=== PATIENT | female | born 1960 | race African-American/Black ===

== ENCOUNTER 2020-01-26 18:26 | Emergency (ER) | payer OTHER, MEDICAID ==
[~2020-01-26] VITALS: Ht 167.6 cm; Wt 50.0 kg
[~2020-01-26 18:26] MED LIST: ALBU2SYR3 PO; AZIT1PAC10 PO
[2020-01-26] MEDS ORDERED: TETANUS, DIPHTHERIA, PERTUSSIS VAC/PF 0.5ML (>7YR OLD) IM ONE (19:15)
[2020-01-26 19:40] VITALS: BP 133/88
== END 2020-01-26 21:43 | disposition left against medical advice (07) ==
LOC: ER 18:26
DX: S01.81XA Laceration without foreign body of other part of head, initial encounter (principal); F10.129 Alcohol abuse with intoxication, unspecified; Y90.9 Presence of alcohol in blood, level not specified; J45.909 Unspecified asthma, uncomplicated; F31.9 Bipolar disorder, unspecified; Z86.73 Personal history of transient ischemic attack (TIA), and cerebral infarction without residual deficits; V43.52XA Car driver injured in collision with other type car in traffic accident, initial encounter; W22.11XA Striking against or struck by driver side automobile airbag, initial encounter; Y93.89 Activity, other specified; Y92.488 Other paved roadways as the place of occurrence of the external cause
CPT/HCPCS: 90471; 90715; 99283

== ENCOUNTER 2024-06-24 00:19 | Inpatient (IN) | payer OTHER, MEDICAID ==
[~2024-06-24] VITALS: Ht 162.6 cm; Wt 54.9 kg
[2024-06-24] VITALS (17 sets, daily range): BP systolic 120–160; BP diastolic 73–96; PULSE 60–79; RESP 17–38; TEMP 36.50292–36.72516; O2SAT 94–100
[2024-06-24] MEDS: METHYLPREDNISOLONE SOD SUCC 125MG/2ML (ACT-O-VIAL) IV STA (00:52)
[2024-06-24] MEDS: MAGNESIUM 2 G PREMIX 50 ML IV ONE (00:52)
[2024-06-24 01:34] LABS: BG BASE EXCESS -6.4 mmol/L (-2.0-3.0); BG CARBOXYHEMOGLOBIN 2.1 % (0.5-1.5); BG DEOXYHEMOGLOBIN 0.5 % (0.0-5.0); BG FRACTION INSPIRED OXYGEN 100; BG HCO3 ACT 22.3 mmol/L (21.0-28.0); BG METHEMOGLOBIN 0.2 % (0.5-1.5); BG OXYGEN SATURATION 99.5 % (94.0-98.0); BG OXYHEMOGLOBIN 97.2 % (94.0-98.0); BG PCO2 57.8 mmHg (32.0-45.0); BG PH 7.205 (7.350-7.450); BG PO2 218.5 mmHg (83.0-108.0); BG TOTAL HEMOGLOBIN 14.7 g/dL (12.0-16.0); BG VENT MODE MASK - BIPAP
[2024-06-24] MEDS: ALBUTEROL (0.083%) 2.5MG/3ML NEB HHN STA (01:47)
[2024-06-24] MEDS: IPRATROPIUM/ALBUTEROL 0.5-3(2.5)MG/3ML NEB HHN ONE (01:47)
[2024-06-24 02:29] LABS: BASOPHILS % 0.2 % (0.0-2.0); EOSINOPHILS % 0.4 % (0.0-5.0); HEMATOCRIT. 39.9 % (36.0-48.0); HEMOGLOBIN. 12.9 g/dL (12.0-16.0); LYMPHOCYTES % 10.2 % (20.0-50.0); MEAN CORPUSCULAR HEMOGLOBIN 30.4 pg (28.0-32.0); MEAN CORPUSCULAR HGB CONC 32.4 g/dL (31.0-37.0); MEAN CORPUSCULAR VOLUME 93.9 fL (81.0-99.0); MEAN PLATELET VOLUME 7.9 fl (7.4-10.4); MONOCYTES % 5.9 % (2.0-8.0); NEUTROPHILS % 83.3 % (40.0-76.0); PLATELET 143 x1000/uL (130-400); RED BLOOD CELL COUNT 4.25 mill/uL (4.2-5.4); RED CELL DISTRIBUTION WIDTH 16.2 % (11.6-14.6); WHITE BLOOD COUNT 4.8 x1000/uL (4.5-11.0)
[2024-06-24 02:37] LABS: CHLORIDE 107 mEq/L (98-107); POTASSIUM 3.4 mEq/L (3.5-5.1); SODIUM 140 mEq/L (136-145)
[2024-06-24 02:38] LABS: CALCIUM 8.5 mg/dL (8.7-10.4); CARBON DIOXIDE 30 mEq/L (21-32)
[2024-06-24 02:43] LABS: CREATININE 1.7 mg/dL (0.6-1.0); GLUCOSE 191 mg/dL (70-105); UREA NITROGEN BLOOD 16 mg/dL (9-23)
[2024-06-24 02:44] LABS: LACTIC ACID 2.2 mmol/L (0.4-2.0)
[2024-06-24 02:52] LABS: ETHANOL BLOOD < 10 mg/dL (<10)
[2024-06-24 02:57] LABS: TROPONIN I HIGH SENSITIVITY 64 ng/L (3.0-34)
[2024-06-24] MEDS: CEFTRIAXONE 1GM/50ML 50 ML IV ONE (06:13)
[2024-06-24] MEDS: AZITHROMYCIN 500MG/250ML 250 ML IV STA (06:14)
[2024-06-24] MEDS ORDERED: GUAIFENESIN 200MG/10ML SUGAR FREE UDC PO PRN (06:30)
[2024-06-24] MEDS ORDERED: IPRATROPIUM/ALBUTEROL 0.5-3(2.5)MG/3ML NEB NEB PRN (06:30)
[2024-06-24] MEDS ORDERED: NITROGLYCERIN 0.4MG TABLET SL SL PRN (06:30)
[2024-06-24] MEDS ORDERED: ACETAMINOPHEN 325MG TABLET PO PRN ×2 (06:30)
[2024-06-24] MEDS ORDERED: DOCUSATE SODIUM 100MG CAPSULE PO PRN (06:30)
[2024-06-24] MEDS ORDERED: MAGNESIUM/ALUMINUM HYDROXIDE/SIMETHICONE 30ML UDC PO PRN (06:30)
[2024-06-24] MEDS ORDERED: ONDANSETRON HCL 4MG/2ML INJ IV PRN (06:30)
[2024-06-24] MEDS ORDERED: ZOLPIDEM TARTRATE 5MG TABLET PO PRN (06:30)
[2024-06-24] MEDS ORDERED: KETOROLAC 15MG/ML VIAL IV PRN (06:30)
[2024-06-24 06:43] LABS: TROPONIN I HIGH SENSITIVITY 82 ng/L (3.0-34)
[2024-06-24 07:13] LABS: IRON 58 ug/dL (50-170); TRIGLYCERIDE 104 mg/dL (0-150)
[2024-06-24 07:14] LABS: LDL CHOLESTEROL 145 mg/dL (5-100)
[2024-06-24 07:15] LABS: CHOLESTEROL 183 mg/dL (<200); HDL CHOLESTEROL 35 mg/dL (>65)
[2024-06-24 07:16] LABS: TOTAL IRON BINDING CAPACITY 296 ug/dl (250-425)
[2024-06-24 07:17] LABS: T4 FREE 1.07 ng/dL (0.89-1.76); THYROID STIMULATING HORMONE 3.33 uIU/mL (0.55-4.78)
[2024-06-24 07:44] LABS: VITAMIN B12 SERUM 566 pg/mL (211-911)
[2024-06-24] MEDS: IPRATROPIUM/ALBUTEROL 0.5-3(2.5)MG/3ML NEB HHN SCH (08:52)
[2024-06-24] MEDS: SPIRONOLACTONE 25MG TABLET PO SCH (10:10)
[2024-06-24] MEDS: ASPIRIN 81MG EC TABLET PO SCH (10:10)
[2024-06-24] MEDS: GUAIFENESIN 600MG ER TABLET PO SCH (10:10)
[2024-06-24] MEDS: FAMOTIDINE 20MG TABLET PO SCH (10:10)
[2024-06-24] MEDS: FUROSEMIDE 40MG/4ML VIAL IVP SCH (10:11)
[2024-06-24] MEDS: ENOXAPARIN 30MG/0.3ML SYR SUBCUT SCH (10:13)
[2024-06-24] MEDS: METHYLPREDNISOLONE SOD SUCC 125MG/2ML (ACT-O-VIAL) IV SCH (14:45)
[2024-06-24 16:24] LABS: CREATINE KINASE MB FRACTION 5.5 ng/mL (0.5-3.6)
[2024-06-24] MEDS: CLONIDINE 0.1MG TABLET PO PRN (18:44)
[2024-06-24 18:48] LABS: CLARITY URINE CLEAR (CLEAR); COLOR URINE YELLOW (YELLOW); GLUCOSE URINE NEGATIVE (NEGATIVE); KETONES URINE NEGATIVE (NEGATIVE); LEUKOCYTE ESTERASE URINE NEGATIVE (NEGATIVE); NITRITE URINE NEGATIVE (NEGATIVE); OCCULT BLOOD URINE NEGATIVE (NEGATIVE); PH URINE 5.5 (4.5-8.0); PROTEIN URINE NEGATIVE (NEGATIVE); SPECIFIC GRAVITY URINE 1.006 (1.005-1.030); UROBILINOGEN URINE 0.2 E.U./dL (0.2-1.0)
[2024-06-24 19:18] LABS: *AMPHETAMINES SCREEN URINE NEGATIVE (NEGATIVE); *BARBITURATES SCREEN URINE NEGATIVE (NEGATIVE); *BENZODIAZEPINES SCREEN URINE NEGATIVE (NEGATIVE); *COCAINE SCREEN URINE PRESUMPTIVE POSITIVE (NEGATIVE); CANNABINOID URINE SCREEN NEGATIVE (NEGATIVE); ECSTASY MDMA SCREEN URINE NEGATIVE (NEGATIVE); METHADONE URINE SCREEN NEGATIVE (NEGATIVE); OPIATES URINE SCREEN NEGATIVE (NEGATIVE); PHENCYCLIDINE URINE SCREEN NEGATIVE (NEGATIVE)
[2024-06-25] VITALS (12 sets, daily range): BP systolic 139–167; BP diastolic 92–131; PULSE 75–87; RESP 16–26; TEMP 36.55848–36.78072; O2SAT 92–100
[2024-06-25 00:36] LABS: CREATINE KINASE MB FRACTION 5.5 ng/mL (0.5-3.6)
[2024-06-25 06:56] LABS: HEMATOCRIT. 37.4 % (36.0-48.0); HEMOGLOBIN. 12.4 g/dL (12.0-16.0); MEAN CORPUSCULAR HGB CONC 33.3 g/dL (31.0-37.0); MEAN PLATELET VOLUME 8.2 fl (7.4-10.4); PLATELET 176 x1000/uL (130-400); RED BLOOD CELL COUNT 4.02 mill/uL (4.2-5.4); RED CELL DISTRIBUTION WIDTH 15.6 % (11.6-14.6)
[2024-06-25 06:59] LABS: CARBON DIOXIDE 25 mEq/L (21-32); CHLORIDE 102 mEq/L (98-107); POTASSIUM 3.5 mEq/L (3.5-5.1); SODIUM 134 mEq/L (136-145)
[2024-06-25 07:00] LABS: CALCIUM 9.1 mg/dL (8.7-10.4)
[2024-06-25 07:04] LABS: CREATININE 1.5 mg/dL (0.6-1.0); GLUCOSE 145 mg/dL (70-105)
[2024-06-25 07:05] LABS: UREA NITROGEN BLOOD 29 mg/dL (9-23)
[2024-06-25 07:06] LABS: ALANINE AMINOTRANSFERASE 10 IU/L (10-49); ALBUMIN 3.5 g/dL (3.2-4.8); ASPARTATE AMINOTRANSFERASE 19 IU/L (<34)
[2024-06-25 07:07] LABS: BILIRUBIN TOTAL 0.3 mg/dL (0.1-1.0); PHOSPHORUS 2.4 mg/dL (2.5-4.9)
[2024-06-25 07:26] LABS: DIFFERENTIAL COMMENT 1
[2024-06-25] MEDS ORDERED: AZITHROMYCIN 500 MG in DEXT 5% WATER 250 ML IV SCH (08:00)
[2024-06-25] MEDS ORDERED: KETOROLAC 15MG/ML VIAL IV PRN (08:30)
[2024-06-25] MEDS: AZITHROMYCIN 500MG/250ML 250 ML IV SCH (09:36)
[2024-06-25 15:48] LABS: ANISOCYTOSIS 1+; PLATELET ESTIMATE NORMAL
[2024-06-25] MEDS ORDERED: FUROSEMIDE 40MG/4ML VIAL IVP SCH (18:00)
== END 2024-06-25 12:05 | disposition left against medical advice (07) | DRG 189 ==
LOC: ER 00:19 → 5EST 04:31 → EDBEDREQ 04:51 → EDBEDREQTM 04:51
PROVIDERS: ADMIT Internal Medicine; ATTEND Internal Medicine
PROC: 5A09357 Assistance with Respiratory Ventilation, Less than 24 Consecutive Hours, Continuous Positive Airway Pressure (ICD-10-PCS; principal; 2024-06-24)
PROC: 5A09357 Assistance with Respiratory Ventilation, Less than 24 Consecutive Hours, Continuous Positive Airway Pressure (ICD-10-PCS; 2024-06-25)
DX: J96.01 Acute respiratory failure with hypoxia (principal); N17.0 Acute kidney failure with tubular necrosis; J44.1 Chronic obstructive pulmonary disease with (acute) exacerbation; J45.901 Unspecified asthma with (acute) exacerbation; E87.6 Hypokalemia; E83.51 Hypocalcemia; F14.10 Cocaine abuse, uncomplicated; F43.9 Reaction to severe stress, unspecified; Z53.29 Procedure and treatment not carried out because of patient's decision for other reasons; I51.7 Cardiomegaly; J96.02 Acute respiratory failure with hypercapnia; F17.200 Nicotine dependence, unspecified, uncomplicated
CPT/HCPCS: 36415; 36600; 71045; 80048; 80053; 80061; 80305; 80320; 81003; 82375; 82550; 82553; 82607; 82746; 82805; 83036; 83540; 83550; 83605; 83735; 83880; 84100; 84145; 84439; 84443; 84484; 85025; 93005; 93970; 94640; 94660; 99285; C1893; J0456; J0696; J1650; J1940; J2919; J3475; G0480